=== PATIENT | male | born 1945 | race Caucasian/White ===

== ENCOUNTER 2024-08-04 12:02 | Emergency (ER) | payer MEDICARE ==
[~2024-08-04] VITALS: Ht 177.8 cm; Wt 85.5 kg
[2024-08-04 12:04] VITALS: TEMP 97.3
[2024-08-04] MEDS ORDERED: EFFI10TA7 PO (12:25)
[2024-08-04] MEDS ORDERED: ATOR1TAB21 PO (12:25)
[2024-08-04] MEDS ORDERED: ASPI81TA26 PO (12:25)
[2024-08-04] MEDS ORDERED: EZET10TA21 PO (12:25)
[2024-08-04] MEDS ORDERED: METF-877 PO (12:25)
[2024-08-04] MEDS ORDERED: TRAM50TA2 PO (12:25)
[2024-08-04 15:29] VITALS: BP 153/83; O2SAT 96
== END 2024-08-04 16:58 | disposition left against medical advice (07) ==
LOC: M ED 12:02
DX: Z53.21 Procedure and treatment not carried out due to patient leaving prior to being seen by health care provider (principal)